=== PATIENT | male | born 1935 | race Caucasian/White ===

== ENCOUNTER 2016-05-19 21:54 | Observation (INO) | payer MEDICARE, OTHER ==
[~2016-05-19] VITALS: Ht 175.3 cm; Wt 69.5 kg
[~2016-05-19 21:54] MED LIST: ASPI81TA82 PO; ATOR10 PO; CHLO10CA17 PO; CIAL20TA PO; COMBAER INH; DEXI30CA2 PO; DUONSOL2 NEB; SPIRCAP INH; SYMB160A INH
[2016-05-19 22:12] VITALS: BP 114/73; PULSE 89; RESP 20; TEMP 99; O2SAT 92
[2016-05-20] VITALS (11 sets, daily range): BP systolic 90–116; BP diastolic 46–68; PULSE 84–94; RESP 18–20; TEMP 98.1–98.3; O2SAT 94–97
[2016-05-20] MEDS ORDERED: VENTAER INH
[2016-05-20] MEDS ORDERED: SYMB80AE INH
[2016-05-20] MEDS ORDERED: ALEN1TAB48 PO
[2016-05-20] MEDS ORDERED: IPRASOL INH
[2016-05-20] MEDS ORDERED: ASPI81TA81
[2016-05-20] MEDS ORDERED: SODIUM CHLORIDE 0.9% FLUSH 10 ML FLUSH IVF PRN (00:15)
[2016-05-20] MEDS ORDERED: methylPREDNISolone SOD SUCC 125 MG/2 ML VIAL IVP ONE (00:15)
[2016-05-20] MEDS: RESP: ALBUTEROL 2.5 MG/IPRATROPIUM 0.5 MG NEB (SCH) INH (00:23)
[2016-05-20 00:27] LABS: AUTOMATED NEUTROPHIL # 12.3 TH/MM3 (1.8-7.7); BASOPHIL # 0.6 TH/MM3 (0-0.2); BASOPHIL % 4.1 % (0.0-2.0); EOSINOPHIL # 0.1 TH/MM3 (0-0.4); EOSINOPHIL % 0.4 % (0.0-4.0); HEMATOCRIT 48.3 % (39.0-51.0); LYMPH % 5.5 % (9.0-44.0); LYMPHOCYTE # 0.8 TH/MM3 (1.0-4.8); MEAN CORPUSCULAR HEMOGLOBIN 29.2 PG (27.0-34.0); MEAN CORPUSCULAR HGB CONC 32.1 % (32.0-36.0); MONO % 6.5 % (0.0-8.0); NEUT % 83.5 % (16.0-70.0); PLATELET COUNT 232 TH/MM3 (150-450); RED CELL DISTRIBUTION WIDTH 13.6 % (11.6-17.2); WHITE BLOOD COUNT 14.8 TH/MM3 (4.0-11.0)
[2016-05-20 00:37] LABS: HEMO FLAGS DIFF FINAL
[2016-05-20 00:39] LABS: CHLORIDE 107 MEQ/L (98-107); POTASSIUM 4.1 MEQ/L (3.5-5.1); SODIUM (NA) 141 MEQ/L (136-145)
[2016-05-20 00:43] LABS: ANION GAP 10 MEQ/L (5-15); BICARBONATE 24.3 MEQ/L (21.0-32.0); BLOOD UREA NITROGEN 21 MG/DL (7-18)
[2016-05-20 00:46] LABS: ALT (GPT) 13 U/L (12-78); AST (GOT) 7 U/L (15-37); GLOMERULAR FILTRATION RATE 93 ML/MIN (>89)
[2016-05-20 00:48] LABS: TOTAL BILIRUBIN ADULT 0.6 MG/DL (0.2-1.0)
[2016-05-20 00:49] LABS: ALKALINE PHOSPHATASE 59 U/L (45-117)
--- NOTE | 2016-05-20 00:55 | RADHPO ---
EXAM DATE/TIME: 05/20/2016 00:42 [facility] COMPARISON: CHEST SINGLE AP, January 24, 2014, 17:39. INDICATIONS : Short of breath. MEDICAL HISTORY : None. SURGICAL HISTORY : None. ENCOUNTER: Initial ACUITY: 1 day PAIN SCORE: 7/10 LOCATION: Bilateral chest FINDINGS: A single portable frontal view the chest shows a parenchymal opacity within the right lung base. Line ar atelectasis within the left lung base. No effusions. Heart is normal in size. Bony structures are unremarkable. Anchoring devices overlie the humeral head on the right. CONCLUSION: Right lower lobe infiltrate. Left basilar atelectasis. Gil Schulte Jr., MD on May 20, 2016 at 0:53 Board Certified Radiologist. This report was verified electronically.
[2016-05-20 01:15] LABS: APTT (PATIENT) 30.4 SEC (24.3-30.1); PROTHROMBIN TIME - PATIENT 11.4 SEC (9.8-11.6)
[2016-05-20] MEDS ORDERED: AZITHROMYCIN INJ 500 MG in SODIUM CHLOR 0.9% 250 ML INJ 250 ML IV ONE (01:15)
[2016-05-20] MEDS ORDERED: cefTRIAXone INJ 1,000 MG in SODIUM CHLORIDE 0.9% INJ 100 ML IV ONE (01:15)
[2016-05-20] MEDS ORDERED: NALOXONE HCL 0.4 MG/ML AMP IV PRN (01:30)
[2016-05-20] MEDS ORDERED: RESP: ALBUTEROL 2.5 MG/IPRATROPIUM 0.5 MG NEB (PRN) NEB (01:30)
[2016-05-20] MEDS ORDERED: SODIUM CHLORIDE 0.9% FLUSH 10 ML FLUSH IV FLUSH PRN (01:30)
--- NOTE | 2016-05-20 02:36 | PD ---
HPI Chief Complaint: Respiratory Distress Time Seen by Provider: 00:08 Travel History International Travel<30 days: No Contact w/Intl Traveler<30days: No Traveled to known affect area: No History of Present Illness HPI Patient is an 80-year-old male with history of COPD who wears oxygen at night, who comes in complaining of shortness of breath for the past 3 days. He says he has had a productive cough, and got worse today. He denies fever or chills. He does say he feels some chest pressure. He has had some swelling in his legs, but says this is improving. He has no heart problems that he knows of. He says he feels like he needs a breathing treatment, but was unable to use his nebulizer at home because he felt like he couldn't take a deep breath. PFSH Past Medical History Autoimmune Disease: No Cancer: Yes (skin cancer ) Cardiovascular Problems: No COPD: Yes Endocrine: No GERD: No Genitourinary: No Hiatal Hernia: No Immune Disorder: No Medical other: Yes (2lts O2 at hs, ) Musculoskeletal: Yes (ostheoporosis) Neurologic: No Psychiatric: No Reproductive: No Respiratory: Yes (COPD) Sleep Apnea: No Ulcer: No Past Surgical History Abdominal Surgery: Yes (APPENDECTOMY) Cardiac Surgery: No Ear Surgery: No Endocrine Surgery: No Eye Surgery: No Genitourinary Surgery: No Gynecologic Surgery: No Thoracic Surgery: Yes (RL LOBE REMOVED) Other Surgery: Yes (hip replacement july 2015) Social History Alcohol Use: Yes (socially) Tobacco Use: Yes (1 ppd) Substance Use: No Allergies-Medications (Allergen,Severity, Reaction): Coded Allergies: No Known Allergies (Verified , 05/17/12) Uncoded Allergies: MYCOLOG CREME (Allergy, Mild, 01/20/03) Reported Meds & Prescriptions Reported Meds & Active Scripts Active Reported Alendronate (Alendronate Sodium) 70 Mg Tab 70 Mg PO Q7D Ventolin Hfa 18 GM Inh (Albuterol Sulfate) 90 Mcg/Act Aer 1 Puff INH Q4H PRN Aspir-81 (Aspirin) 81 Mg Tabdr Symbicort Inh (Budesonide/Formoterol Fumarate) 80-4.5 Mcg/Act Aero 2 Puff INH Q12HR Duoneb (Ipratropium-Albuterol Neb) 0.5-2.5 Mg/3 Ml Neb 1 Nebule INH DAILY Review of Systems Except as stated in HPI: all other systems reviewed are Neg General / Constitutional: No: Fever, Chills HENT: No: Headaches Cardiovascular: Positive: Chest Pain or Discomfort Respiratory: Positive: Cough, Shortness of Breath Gastrointestinal: No: Nausea, Vomiting Musculoskeletal: Positive: Edema, No: Pain Skin: No Rash, No Change in Pigmentation Neurologic: No: Weakness, Dizziness Physical Exam Narrative GENERAL: Awake and alert, in no acute distress. SKIN: Focused skin assessment warm/dry. HEAD: Atraumatic. Normocephalic. EYES: Pupils equal and round. No scleral icterus. ENT: Mucous membranes pink and moist. NECK: Trachea midline. No JVD. CARDIOVASCULAR: Regular rate and rhythm. No murmur appreciated. RESPIRATORY: No accessory muscle use. Breath sounds equal bilaterally. Wheezing throughout the lungs, worse on the left. GASTROINTESTINAL: Abdomen soft, non-tender, nondistended. MUSCULOSKELETAL: No obvious deformities. No clubbing. No cyanosis. 1+ pitting edema of bilateral lower extremities. No calf tenderness. NEUROLOGICAL: Awake and alert. No obvious cranial nerve deficits. Motor grossly within normal limits. Normal speech. PSYCHIATRIC: Appropriate mood and affect; insight and judgment normal. Data Data Last Documented VS Vital Signs Date Time Temp Pulse Resp B/P Pulse Ox O2 Delivery O2 Flow Rate FiO2 05/20/16 01:14 95 Nasal Cannula 2 05/20/16 01:06 94 96/63 05/19/16 22:12 99.0 20 Orders Complete Blood Count With Diff (05/20/16 00:14) Comprehensive Metabolic Panel (05/20/16 00:14) B-Type Natriuretic Peptide (05/20/16 00:14) Act Partial Throm Time (Ptt) (05/20/16 00:14) Prothrombin Time / Inr (Pt) (05/20/16 00:14) Troponin I (05/20/16 00:14) Iv Access Insert/Monitor (05/20/16 00:14) Ecg Monitoring (05/20/16 00:14) Oximetry (05/20/16 00:14) Oxygen Administration (05/20/16 00:14) Chest, Single Ap (05/20/16 00:14) Sodium Chloride 0.9% Flush (Ns Flush) (05/20/16 00:15) Methylprednisolone So Succ Inj (Solumedr (05/20/16 00:15) Albuterol-Ipratropium Neb (Duoneb Neb) (05/20/16 00:15) Ceftriaxone Inj (Rocephin Inj) (05/20/16 01:15) Azithromycin Inj (Zithromax Inj) (05/20/16 01:15) Admit Order (Ed Use Only) (05/20/16 ) Labs Laboratory Tests Test 05/20/16 00:19 White Blood Count 14.8 TH/MM3 Red Blood Count 5.30 MIL/MM3 Hemoglobin 15.5 GM/DL Hematocrit 48.3 % Mean Corpuscular Volume 91.0 FL Mean Corpuscular Hemoglobin 29.2 PG Mean Corpuscular Hemoglobin 32.1 % Concent Red Cell Distribution Width 13.6 % Platelet Count 232 TH/MM3 Mean Platelet Volume 7.2 FL Neutrophils (%) (Auto) 83.5 % Lymphocytes (%) (Auto) 5.5 % Monocytes (%) (Auto) 6.5 % Eosinophils (%) (Auto) 0.4 % Basophils (%) (Auto) 4.1 % Neutrophils # (Auto) 12.3 TH/MM3 Lymphocytes # (Auto) 0.8 TH/MM3 Monocytes # (Auto) 1.0 TH/MM3 Eosinophils # (Auto) 0.1 TH/MM3 Basophils # (Auto) 0.6 TH/MM3 CBC Comment DIFF FINAL Differential Comment Prothrombin Time 11.4 SEC Prothromb Time International 1.0 RATIO Ratio Activated Partial 30.4 SEC Thromboplast Time Sodium Level 141 MEQ/L Potassium Level 4.1 MEQ/L Chloride Level 107 MEQ/L Carbon Dioxide Level 24.3 MEQ/L Anion Gap 10 MEQ/L Blood Urea Nitrogen 21 MG/DL Creatinine 0.80 MG/DL Estimat Glomerular Filtration 93 ML/MIN Rate Random Glucose 108 MG/DL Calcium Level 9.0 MG/DL Total Bilirubin 0.6 MG/DL Aspartate Amino Transf 7 U/L (AST/SGOT) Alanine Aminotransferase 13 U/L (ALT/SGPT) Alkaline Phosphatase 59 U/L Troponin I LESS THAN 0.02 NG/ML B-Type Natriuretic Peptide 79 PG/ML Total Protein 6.9 GM/DL Albumin 3.3 GM/DL MDM Medical Decision Making Medical Screen Exam Complete: Yes Emergency Medical Condition: Yes Medical Record Reviewed: Yes Interpretation(s) ECG shows normal sinus rhythm at 88, no ST elevation or depression, normal intervals. Differential Diagnosis COPD exacerbation versus pneumonia versus ACS Narrative Course Patient is an 80-year-old male who comes in complaining of shortness of breath. Exam shows wheezing in the lungs, worse on the left. IV established, labs sent. Patient connected to the hospital monitor. Given 3 duo nebs as well as a dose of Solu-Medrol. Labs show an elevated white blood cell count to 14.8. Chest x-ray shows a right -sided infiltrate. Patient given Rocephin and azithromycin. Will be admitted for further management. Diagnosis Primary Impression: Pneumonia Qualified Code: J18.1 - Pneumonia of right lower lobe due to infectious organism Additional Impression: Chronic obstructive pulmonary disease Qualified Code: J44.1 - Chronic obstructive pulmonary disease with acute exacerbation Admitting Information Admitting Physician Requests: Admit Inez Gaxiola MD May 20, 2016 02:36
[2016-05-20] MEDS: RESP: ALBUTEROL 2.5 MG/IPRATROPIUM 0.5 MG NEB (SCH) NEB ×3 (04:07→15:23)
[2016-05-20] MEDS: methylPREDNISolone SOD SUCC 40 MG/1 ML VIAL IV PUSH SCH ×2 (05:44→12:07)
[2016-05-20] MEDS ORDERED: LEVOFLOXACIN 750 MG PREMIX INJ 150 ML IV SCH (09:00)
[2016-05-20] MEDS ORDERED: ASPIRIN EC 81 MG TABEC PO SCH (09:00)
[2016-05-20] MEDS ORDERED: SODIUM CHLORIDE 0.9% FLUSH 10 ML FLUSH IV FLUSH SCH (09:00)
[2016-05-20] MEDS ORDERED: BUDESONIDE-FORMOTEROL 80/4.5 MCG INHALER INH SCH (09:00)
[2016-05-20] MEDS ORDERED: PANTOPRAZOLE SOD 40 MG DELAYED RELEASE TAB PO SCH (09:00)
[2016-05-20] MEDS ORDERED: ENOXAPARIN SODIUM 40 MG/0.4 ML SYRINGE SQ SCH (09:00)
--- NOTE | 2016-05-20 10:40 | EKG ---
Date Performed: 05/20/2016 Time Performed: 00:04:40 PTAGE: 80 years EKG: Sinus rhythm . Normal ECG Compared to prior tracing no significant change PREVIOUS TRACING : 01/24/2014 23.37 DOCTOR: Sofia Armando Interpretating Date/Time 05/20/2016 10:34:24
--- NOTE | 2016-05-20 13:51 | HHI.HP ---
[facility] Service [facility] Primary Care Physician Ty Weeks MD Admission Diagnosis Pneumonia, COPD Diagnoses: Travel History International Travel<30 Days: No Contact w/Intl Traveler <30 Da: No Traveled to Known Affected Are: No History of Present Illness This is a pleasant 80 year-old female with past medical history of COPD on oxygen 2 L at night who continues to smoke about a pack a day who presents to the ER last night with a three-day history of cough which progressed to dyspnea and wheezing. He denied fevers or chills. Denied confusion. He made an appointment to be seen by his infectious disease physician Dr. Valle this morning. Yesterday evening he felt so short of breath that it was difficult to use his inhaler and so he presented to the ER. He was given Rocephin Zithromax Solu-Medrol and DuoNeb's. Today he states he feels 80% better. In the emergency department chest x-ray showed a right lower lobe infiltrate. The patient also has history of partial lobe resection of the right lung following some type of infection. Review of Systems Constitutional: DENIES: Fever, Chills Ears, nose, mouth, throat: DENIES: Throat pain, Running Nose Respiratory: COMPLAINS OF: Cough, Shortness of breath, DENIES: Sputum production Cardiovascular: DENIES: Chest pain, Palpitations Gastrointestinal: DENIES: Abdominal pain, Vomiting Genitourinary: DENIES: Hematuria, Dysuria Musculoskeletal: DENIES: Back pain, Neck pain Integumentary: DENIES: Rash Hematologic/lymphatic: DENIES: Lymphadenopathy Neurologic: DENIES: Abnormal gait, Headache Psychiatric: DENIES: Anxiety, Confusion Past Family Social History Past Medical History COPD on 2 L nasal cannula at night History of partial right lobectomy following infection Reported Medications Last Impressions Chest X-Ray 05/20/16 0014 Signed Impressions: Service Date/Time: Friday, May 20, 2016 00:42 - CONCLUSION: Right lower lobe infiltrate. Left basilar atelectasis. Gil Schulte Jr., MD Allergies: Coded Allergies: No Known Allergies (Verified , 05/17/12) Uncoded Allergies: MYCOLOG CREME (Allergy, Mild, 01/20/03) Family History Reviewed and noncontributory Social History No alcohol use Physical Exam Vital Signs Vital Signs Date Time Temp Pulse Resp B/P Pulse Ox O2 Delivery O2 Flow Rate FiO2 05/20/16 11:47 90 20 116/65 96 Room Air 05/20/16 10:24 94 21 05/20/16 10:01 89 18 103/56 97 Room Air 05/20/16 08:30 90 18 90/46 97 Room Air 05/20/16 07:16 98.3 88 18 114/60 97 Nasal Cannula 2 05/20/16 07:12 96 Nasal Cannula 2 05/20/16 05:10 90 103/60 94 Nasal Cannula 2 05/20/16 04:58 Nasal Cannula 2 05/20/16 01:14 95 Nasal Cannula 2 05/20/16 01:06 94 96/63 95 Nasal Cannula 2 05/20/16 00:48 97 Nasal Cannula 2.00 05/20/16 00:45 96 Nasal Cannula 2 05/20/16 00:13 96 Nasal Cannula 2 05/19/16 22:12 99.0 89 20 114/73 92 Physical Exam GENERAL: Well-nourished, well-developed patient. SKIN: Warm and dry. HEAD: Normocephalic. EYES: No scleral icterus. No injection or drainage. NECK: Supple, trachea midline. No JVD or lymphadenopathy. CARDIOVASCULAR: Regular rate and rhythm without murmurs, gallops, or rubs. RESPIRATORY: Breath sounds equal bilaterally. No accessory muscle use. GASTROINTESTINAL: Abdomen soft, non-tender, nondistended. EXTREMITIES: No cyanosis, or edema. NEUROLOGICAL: Awake, alert, and oriented x 3. Non-focal. Laboratory Laboratory Tests Test 05/20/16 05/20/16 00:19 09:48 White Blood Count 14.8 Red Blood Count 5.30 Hemoglobin 15.5 Hematocrit 48.3 Mean Corpuscular Volume 91.0 Mean Corpuscular Hemoglobin 29.2 Mean Corpuscular Hemoglobin 32.1 Concent Red Cell Distribution Width 13.6 Platelet Count 232 Mean Platelet Volume 7.2 Neutrophils (%) (Auto) 83.5 Lymphocytes (%) (Auto) 5.5 Monocytes (%) (Auto) 6.5 Eosinophils (%) (Auto) 0.4 Basophils (%) (Auto) 4.1 Neutrophils # (Auto) 12.3 Lymphocytes # (Auto) 0.8 Monocytes # (Auto) 1.0 Eosinophils # (Auto) 0.1 Basophils # (Auto) 0.6 CBC Comment DIFF FINAL Differential Comment Prothrombin Time 11.4 Prothromb Time International 1.0 Ratio Activated Partial 30.4 Thromboplast Time Sodium Level 141 Potassium Level 4.1 Chloride Level 107 Carbon Dioxide Level 24.3 Anion Gap 10 Blood Urea Nitrogen 21 Creatinine 0.80 Estimat Glomerular Filtration 93 Rate Random Glucose 108 Calcium Level 9.0 Total Bilirubin 0.6 Aspartate Amino Transf 7 (AST/SGOT) Alanine Aminotransferase 13 (ALT/SGPT) Alkaline Phosphatase 59 Troponin I LESS THAN 0.02 B-Type Natriuretic Peptide 79 Total Protein 6.9 Albumin 3.3 Lactic Acid Level 1.6 Result Diagram: 05/20/16 0019 05/20/16 0019 Assessment and Plan Assessment and Plan -Right lower lobe pneumonia, mild COPD exacerbation. No wheezing on exam today. The patient's feels 80% better. He ambulated well and independently on physical therapy evaluation and did not require oxygen while walking. I believe he will do fine on a short course of steroids and Levaquin prescription. The patient was given the option of staying another night in the hospital however he strongly wants to go home. He agrees to return to the hospital. Should start to feel more short of breath. He agrees to follow-up with his infectious disease physician Dr. Valle in 2-3 days. He was encouraged to quit smoking. Diane Kuo MD May 20, 2016 13:51
[2016-05-20] MEDS ORDERED: LEVA750T PO (13:55)
[2016-05-20] MEDS ORDERED: MEDR4PAK PO (13:55)
== END 2016-05-20 15:48 | disposition home or self-care (01) ==
LOC: PHED 21:54 → PHEDA 05-20 01:32 → INTOOBSV 05-20 01:32 → PHEDH 05-20 05:32 → PH3B 05-20 13:12
PROVIDERS: ADMIT Family Medicine; ATTEND Family Medicine
DX: J44.0 Chronic obstructive pulmonary disease with (acute) lower respiratory infection (principal); J18.9 Pneumonia, unspecified organism; J44.1 Chronic obstructive pulmonary disease with (acute) exacerbation; F17.200 Nicotine dependence, unspecified, uncomplicated; Z85.828 Personal history of other malignant neoplasm of skin; Z88.8 Allergy status to other drugs, medicaments and biological substances; Z79.82 Long term (current) use of aspirin
CPT/HCPCS: 71010; 80053; 83605; 83880; 84484; 85025; 85610; 85730; 93005; 94640; 94664; 96374; 96375; 97162; 99285; G0378; G8987; G8988; J0456; J0696; J1650; J1956; J2920; J2930; J7050

== ENCOUNTER 2016-12-11 21:01 | Emergency (ER) | payer MEDICARE, OTHER ==
[~2016-12-11] VITALS: Ht 182.9 cm; Wt 75.1 kg
[~2016-12-11 21:01] MED LIST changes: +ALEN1TAB48 PO; +ASPI81TA81; -ASPI81TA82 PO; -ATOR10 PO; -CHLO10CA17 PO; -CIAL20TA PO; -COMBAER INH; -DEXI30CA2 PO; -DUONSOL2 NEB; +IPRASOL INH; +LEVA750T PO; +MEDR4PAK PO; -SPIRCAP INH; -SYMB160A INH; +SYMB80AE INH; +VENTAER INH
[2016-12-11 21:10] VITALS: BP 115/73; PULSE 88; RESP 22; TEMP 98.2; O2SAT 96
[2016-12-11] MEDS ORDERED: LIBRAX PO (21:22)
[2016-12-11] MEDS ORDERED: CIAL2.5T PO (21:22)
--- NOTE | 2016-12-11 21:44 | PD ---
HPI Chief Complaint: Respiratory Symptoms Time Seen by Provider: 21:36 Travel History International Travel<30 days: No Contact w/Intl Traveler<30days: No Traveled to known affect area: No History of Present Illness HPI 81-year-old male presents to the emergency department for complaint of cough congestion and clear to yellow sputum production. Patient has history of COPD. Patient states that he recently traveled here for the winter months and has not yet had his flu shot. Patient states he contacted his local primary care provider but because he had a cold was told that he could not get the flu vaccine. Patient has had no fever but reports he has complained of chills over the past week. Patient's had no orthopnea or PND. Patient states that he has noted however these had some increased cough production and shortness of breath and has been using his nebulizer for bronchodilator therapy. Patient is currently not on a steroid. Patient denies being on a recent antibiotic and is currently not on antibiotic. Patient denies any chest pain. Patient rates discomfort 0/10 in intensity. Patient states he typically uses supplemental oxygen anywhere from 2-1/2 to 3 L/m nasal cannula at nighttime but has not had to increase this quantity of supplemental oxygen. Patient continues to smoke cigarettes. PFSH Past Medical History Narrative Medical COPD; appendectomy, right lower lobectomy; tobacco use occasional alcohol use; nursing notes reviewed Autoimmune Disease: No Cancer: Yes (skin cancer ) Cardiovascular Problems: No COPD: Yes Endocrine: No Gastrointestinal Disorders: No GERD: No Genitourinary: No Hiatal Hernia: No Immune Disorder: No Implanted Vascular Access Dvce: No Musculoskeletal: Yes (ostheoporosis) Neurologic: No Psychiatric: No Reproductive: No Respiratory: Yes (COPD) Sleep Apnea: No Ulcer: No ?: Not Past Surgical History Abdominal Surgery: Yes (APPENDECTOMY) Cardiac Surgery: No Ear Surgery: No Endocrine Surgery: No Eye Surgery: No Genitourinary Surgery: No Gynecologic Surgery: No Neurologic Surgery: No Thoracic Surgery: Yes (RL LOBE REMOVED) Other Surgery: Yes (hip replacement july 2015) Social History Alcohol Use: Yes (socially) Tobacco Use: Yes (1 ppd) Substance Use: No Allergies-Medications (Allergen,Severity, Reaction): Coded Allergies: No Known Allergies (Verified , 12/11/16) Uncoded Allergies: MYCOLOG CREME (Allergy, Mild, 01/20/03) Reported Meds & Prescriptions Reported Meds & Active Scripts Active Cefdinir 300 Mg Cap 300 Mg PO BID 10 Days Reported Cialis (Tadalafil) 2.5 Mg Tab 2.5 Mg PO DAILY Do not exceed 1 dose/day. Librax (Chlordiazepoxide/Clidinium) 5-2.5 Mg Cap 2 Cap PO QID Alendronate (Alendronate Sodium) 70 Mg Tab 70 Mg PO Q7D Ventolin Hfa 18 GM Inh (Albuterol Sulfate) 90 Mcg/Act Aer 1 Puff INH Q4H PRN Aspir-81 (Aspirin) 81 Mg Tabdr Symbicort Inh (Budesonide/Formoterol Fumarate) 80-4.5 Mcg/Act Aero 2 Puff INH Q12HR Duoneb (Ipratropium-Albuterol Neb) 0.5-2.5 Mg/3 Ml Neb 1 Nebule INH DAILY Review of Systems Except as stated in HPI: all other systems reviewed are Neg General / Constitutional: Positive: Chills, No: Fever HENT: No: Congestion Cardiovascular: No: Chest Pain or Discomfort Respiratory: Positive: Cough, Shortness of Breath, Wheezing Gastrointestinal: No: Abdominal Pain Genitourinary: No: Flank Pain Musculoskeletal: No: Myalgias, Arthralgias, Edema, Pain Skin: No Rash Neurologic: No: Weakness, Dizziness Psychiatric: No: Anxiety Endocrine: No: Heat Intolerance Hematologic/Lymphatic: No: Easy Bruising Physical Exam Narrative GENERAL: Well-developed well-nourished male in no acute distress no respiratory distress SKIN: Warm and dry. HEAD: Normocephalic. EYES: No scleral icterus. No injection or drainage. NECK: Supple, trachea midline. No JVD or lymphadenopathy. CARDIOVASCULAR: Regular rate and rhythm without murmurs, gallops, or rubs. RESPIRATORY: Breath sounds equal bilaterally. Few bilateral expiratory wheezes. No accessory muscle use. GASTROINTESTINAL: Abdomen soft, non-tender, nondistended. MUSCULOSKELETAL: No cyanosis, or edema. BACK: Nontender without obvious deformity. No CVA tenderness. Data Data Last Documented VS Vital Signs Date Time Temp Pulse Resp B/P (MAP) Pulse Ox O2 Delivery O2 Flow Rate FiO2 12/11/16 22:10 96 Nasal Cannula 2.00 12/11/16 21:10 98.2 88 22 115/73 (87) Orders Orders Complete Blood Count With Diff (12/11/16 21:36) Comprehensive Metabolic Panel (12/11/16 21:36) B-Type Natriuretic Peptide (12/11/16 21:36) Magnesium (Mg) (12/11/16 21:36) Ckmb (Isoenzyme) Profile (12/11/16 21:36) Troponin I (12/11/16 21:36) Iv Access Insert/Monitor (12/11/16 21:36) Electrocardiogram (12/11/16 21:36) Ecg Monitoring (12/11/16 21:36) Oximetry (12/11/16 21:36) Oxygen Administration (12/11/16 21:36) Chest, Single Ap (12/11/16 21:36) Sodium Chloride 0.9% Flush (Ns Flush) (12/11/16 21:45) Methylprednisolone So Succ Inj (Solumedr (12/11/16 21:45) Albuterol-Ipratropium Neb (Duoneb Neb) (12/11/16 21:45) Influenzae A/B Antigen (12/11/16 21:36) Albuterol-Ipratropium Neb (Duoneb Neb) (12/11/16 22:45) Ceftriaxone Inj (Rocephin Inj) (12/11/16 22:45) Labs Laboratory Tests Test 12/11/16 22:00 12/11/16 22:40 White Blood Count 5.2 TH/MM3 Red Blood Count 5.42 MIL/MM3 Hemoglobin 16.5 GM/DL Hematocrit 50.0 % Mean Corpuscular Volume 92.3 FL Mean Corpuscular Hemoglobin 30.4 PG Mean Corpuscular Hemoglobin Concent 32.9 % Red Cell Distribution Width 14.1 % Platelet Count 169 TH/MM3 Mean Platelet Volume 8.0 FL Neutrophils (%) (Auto) 67.0 % Lymphocytes (%) (Auto) 12.1 % Monocytes (%) (Auto) 15.9 % Eosinophils (%) (Auto) 1.2 % Basophils (%) (Auto) 3.8 % Neutrophils # (Auto) 3.5 TH/MM3 Lymphocytes # (Auto) 0.6 TH/MM3 Monocytes # (Auto) 0.8 TH/MM3 Eosinophils # (Auto) 0.1 TH/MM3 Basophils # (Auto) 0.2 TH/MM3 CBC Comment DIFF FINAL Differential Comment B-Type Natriuretic Peptide 29 PG/ML Blood Urea Nitrogen 15 MG/DL Creatinine 0.87 MG/DL Random Glucose 120 MG/DL Total Protein 6.7 GM/DL Albumin 3.3 GM/DL Calcium Level 8.6 MG/DL Magnesium Level 2.3 MG/DL Alkaline Phosphatase 64 U/L Aspartate Amino Transf (AST/SGOT) 11 U/L Alanine Aminotransferase (ALT/SGPT) 17 U/L Total Bilirubin 0.4 MG/DL Sodium Level 139 MEQ/L Potassium Level 4.3 MEQ/L Chloride Level 105 MEQ/L Carbon Dioxide Level 29.6 MEQ/L Anion Gap 4 MEQ/L Estimat Glomerular Filtration Rate 84 ML/MIN Total Creatine Kinase 42 U/L Troponin I LESS THAN 0.02 NG/ML MDM Medical Decision Making Medical Screen Exam Complete: Yes Emergency Medical Condition: Yes Medical Record Reviewed: Yes Interpretation(s) EKG sinus rhythm no acute ST elevation or injury pattern or ectopy noted Chest x-ray no lobar infiltrate no vascular congestion BNP: 29, not elevated Influenza A/B antigen: Negative Troponin I: Less than 0.02, not elevated; CK total: 49, not elevated Differential Diagnosis Cough, pneumonia, bronchitis, exacerbation COPD, CHF, ACS, PE Narrative Course IV access obtained specimen collected and sent for resulting patient placed on administrative staff supervisor pulse oximetry and supplemental oxygen 2 L/m nasal cannula administered patient ordered DuoNeb updrafts as well as Solu-Medrol 105 mg IV After times one DuoNeb updraft patient is clinically improved however is complaining of some shortness of breath continues to produce clear yellow sputum ; patient without evidence of white count elevation or pneumonia by chest x-ray afebrile here without tachycardia symptoms improved after DuoNeb updraft; will administer a one-time dose of IV Rocephin for infectious bronchitis and will administer 2 additional DuoNeb updrafts. Anticipate patient will be stable for outpatient management with close follow-up with his primary care provider . At 11:20 PM patient is clinically improved and stable for outpatient management as previously identified. Diagnosis Primary Impression: Chronic obstructive pulmonary disease Additional Impression: Acute bronchitis with COPD Referrals: Primary Care Physician call for appointment Patient Instructions: General Instructions Additional Instructions: Increase fluid hydration Complete course of antibiotic as prescribed Follow-up with primary care provider call office in a.m. to schedule follow-up appointment Take acetaminophen/Tylenol every 4 hours as needed for fever 100.4F or greater Continue chronic medications as currently prescribed Med/Other Pt SpecificInfo: Prescription(s) given Scripts Cefdinir (Cefdinir) 300 Mg Cap 300 MG PO BID for Infection for 10 Days, #20 CAP 0 Refills Prov: Ni Dickerson MD 12/11/16 Disposition: 01 DISCHARGE HOME Condition: Stable Ni Dickerson MD Dec 11, 2016 21:44
[2016-12-11] MEDS ORDERED: SODIUM CHLORIDE 0.9% FLUSH 10 ML FLUSH IVF PRN (21:45)
[2016-12-11] MEDS ORDERED: methylPREDNISolone SOD SUCC 125 MG/2 ML VIAL IV PUSH ONE (21:45)
[2016-12-11] MEDS ORDERED: RESP: ALBUTEROL 2.5 MG/IPRATROPIUM 0.5 MG NEB (SCH) INH ONE (21:45)
[2016-12-11 22:03] LABS: AUTOMATED NEUTROPHIL # 3.5 TH/MM3 (1.8-7.7); BASOPHIL # 0.2 TH/MM3 (0-0.2); BASOPHIL % 3.8 % (0.0-2.0); EOSINOPHIL # 0.1 TH/MM3 (0-0.4); EOSINOPHIL % 1.2 % (0.0-4.0); HEMOGLOBIN 16.5 GM/DL (13.0-17.0); LYMPH % 12.1 % (9.0-44.0); LYMPHOCYTE # 0.6 TH/MM3 (1.0-4.8); MEAN CELL VOLUME 92.3 FL (80.0-100.0); MEAN CORPUSCULAR HEMOGLOBIN 30.4 PG (27.0-34.0); MEAN CORPUSCULAR HGB CONC 32.9 % (32.0-36.0); MONO % 15.9 % (0.0-8.0); MONOCYTE # 0.8 TH/MM3 (0-0.9); PLATELET COUNT 169 TH/MM3 (150-450); RED BLOOD COUNT 5.42 MIL/MM3 (4.50-5.90); RED CELL DISTRIBUTION WIDTH 14.1 % (11.6-17.2); WHITE BLOOD COUNT 5.2 TH/MM3 (4.0-11.0)
[2016-12-11 22:10] VITALS: O2SAT 96
--- NOTE | 2016-12-11 22:20 | RADRPT ---
EXAM DATE/TIME: 12/11/2016 21:51 [facility] COMPARISON: CHEST SINGLE AP, May 20, 2016, 0:42. INDICATIONS : Short of breath since today. MEDICAL HISTORY : Chronic obstructive pulmonary disease. SURGICAL HISTORY : None. ENCOUNTER: Initial ACUITY: 1 day PAIN SCORE: 0/10 LOCATION: Bilateral chest FINDINGS: Emphysema and patchy interstitial prominence and poor scarring similar to prior. No definite consolidative infiltrate or effusion. Cardiac contours are unchanged. CONCLUSION: Stable chest appearance with emphysema and chronic interstitial changes. Arie Roe MD on December 11, 2016 at 22:17 Board Certified Radiologist. This report was verified electronically.
[2016-12-11 22:40] VITALS: BP 110/68; PULSE 89; RESP 18; O2SAT 96
[2016-12-11] MEDS ORDERED: cefTRIAXone INJ 1,000 MG in SODIUM CHLORIDE 0.9% INJ 100 ML IV ONE (22:45)
--- NOTE | 2016-12-11 22:54 | EKG ---
Date Performed: 12/11/2016 Time Performed: 21:45:09 PTAGE: 81 years EKG: Sinus rhythm NORMAL ECG PREVIOUS TRACING : 05/20/2016 00.04 Compared to prior tracing no significant change DOCTOR: Adilson Wilkes Interpretating Date/Time 12/11/2016 22:53:16
[2016-12-11 23:00] LABS: CHLORIDE 105 MEQ/L (98-107); SODIUM (NA) 139 MEQ/L (136-145)
[2016-12-11 23:04] LABS: ALBUMIN 3.3 GM/DL (3.4-5.0); BICARBONATE 29.6 MEQ/L (21.0-32.0); BLOOD UREA NITROGEN 15 MG/DL (7-18); CALCIUM 8.6 MG/DL (8.5-10.1); GLUCOSE,RANDOM 120 MG/DL (74-106); MAGNESIUM 2.3 MG/DL (1.5-2.5)
[2016-12-11] MEDS: RESP: ALBUTEROL 2.5 MG/IPRATROPIUM 0.5 MG NEB (SCH) INH (23:06)
[2016-12-11] MEDS ORDERED: CEFD300C PO (23:06)
[2016-12-11 23:07] LABS: ALT (GPT) 17 U/L (12-78); AST (GOT) 11 U/L (15-37); CREATININE 0.87 MG/DL (0.60-1.30); GLOMERULAR FILTRATION RATE 84 ML/MIN (>89)
[2016-12-11 23:09] LABS: TOTAL BILIRUBIN ADULT 0.4 MG/DL (0.2-1.0); TOTAL PROTEIN 6.7 GM/DL (6.4-8.2)
[2016-12-11 23:10] LABS: ALKALINE PHOSPHATASE 64 U/L (45-117)
[2016-12-11 23:13] LABS: TROPONIN I LESS THAN 0.02 NG/ML (0.02-0.05)
[2016-12-12 00:53] VITALS: BP 109/57
== END 2016-12-12 01:00 | disposition home or self-care (01) ==
LOC: PHED 21:01
DX: J44.0 Chronic obstructive pulmonary disease with (acute) lower respiratory infection (principal); J20.9 Acute bronchitis, unspecified; F17.210 Nicotine dependence, cigarettes, uncomplicated; Z79.899 Other long term (current) drug therapy
CPT/HCPCS: 71010; 80053; 82550; 83735; 83880; 84484; 85025; 93005; 94640; 94664; 96374; 99285; J0696; J2930

== ENCOUNTER 2017-01-31 16:56 | Emergency (ER) | payer MEDICARE, OTHER ==
[~2017-01-31 16:56] MED LIST changes: +CEFD300C PO; +CIAL2.5T PO; -LEVA750T PO; +LIBRAX PO; -MEDR4PAK PO
[2017-01-31 17:07] VITALS: BP 141/72; PULSE 94; RESP 24; TEMP 98.1; O2SAT 96
[2017-01-31] MEDS ORDERED: PRED10 PO (17:11)
[2017-01-31] MEDS ORDERED: TAMS0.4C4 PO (17:11)
[2017-01-31] MEDS ORDERED: predniSONE 20 MG TAB PO ONE (17:30)
[2017-01-31 17:35] VITALS: BP 95/65; PULSE 92; RESP 20; O2SAT 98
--- NOTE | 2017-01-31 17:43 | PD ---
HPI Chief Complaint: Respiratory Symptoms Time Seen by Provider: 17:09 Travel History International Travel<30 days: No Contact w/Intl Traveler<30days: No Traveled to known affect area: No History of Present Illness HPI patient is an 81-year-old male with a history of COPD on 2-3 L oxygen at home nearly [id number] now. Gradual decrease in lung function over the past few months. He states that his primary care physician Dr. franklin is told him that he is about to be on steroids all the time. Patient states that he's been having shortness of breath for the past 2-3 days, gradually worsening. Denies any cough congestion or fever. States that this happens to him from time to time and thinks that his lungs are starting to get worse. He continues to smoke despite having advanced COPD, he does not smoke while he was using his oxygen. States symptoms are moderate, context as above, gradually worsening, associated signs symptoms as above. PFSH Past Medical History Autoimmune Disease: No Cancer: Yes (skin cancer ) Cardiovascular Problems: No COPD: Yes Endocrine: No Gastrointestinal Disorders: No GERD: No Genitourinary: No Hiatal Hernia: No Immune Disorder: No Implanted Vascular Access Dvce: No Musculoskeletal: Yes (ostheoporosis) Neurologic: No Psychiatric: No Reproductive: No Respiratory: Yes (COPD) Sleep Apnea: No Ulcer: No Past Surgical History Abdominal Surgery: Yes (APPENDECTOMY) Cardiac Surgery: No Ear Surgery: No Endocrine Surgery: No Eye Surgery: No Genitourinary Surgery: No Gynecologic Surgery: No Neurologic Surgery: No Thoracic Surgery: Yes (RL LOBE REMOVED) Other Surgery: Yes (hip replacement july 2015) Social History Alcohol Use: Yes (socially) Tobacco Use: Yes (1/2PPD) Substance Use: No Allergies-Medications (Allergen,Severity, Reaction): Coded Allergies: No Known Allergies (Verified Adverse Reaction, Unknown, 01/31/17) Uncoded Allergies: MYCOLOG CREME (Allergy, Mild, 01/20/03) Reported Meds & Prescriptions Reported Meds & Active Scripts Active Prednisone 20 Mg Tab 60 Mg PO DAILY 5 Days Reported Tamsulosin (Tamsulosin HCl) 0.4 Mg Cap 0.4 Mg PO HS Prednisone 10 Mg Tab 10 Mg PO DAILY Ventolin Hfa 18 GM Inh (Albuterol Sulfate) 90 Mcg/Act Aer 1 Puff INH Q4H PRN Symbicort Inh (Budesonide/Formoterol Fumarate) 80-4.5 Mcg/Act Aero 2 Puff INH Q12HR Duoneb (Ipratropium-Albuterol Neb) 0.5-2.5 Mg/3 Ml Neb 1 Nebule INH DAILY Review of Systems Except as stated in HPI: all other systems reviewed are Neg Physical Exam Narrative GENERAL: Well-developed well-nourished, no obvious distress. SKIN: Focused skin assessment warm/dry. HEAD: Atraumatic. Normocephalic. EYES: Pupils equal and round. No scleral icterus. No injection or drainage. ENT: No nasal bleeding or discharge. Mucous membranes pink and moist. NECK: Trachea midline. No JVD. CARDIOVASCULAR: Regular rate and rhythm. No murmur appreciated. 2+ bilateral equal pulses in all 4 extremity's. RESPIRATORY: No accessory muscle use. Clear to auscultation. Breath sounds equal bilaterally. Speaks in full sentences, no wheezes rales or rhonchi. GASTROINTESTINAL: Abdomen soft, non-tender, nondistended. Hepatic and splenic margins not palpable. MUSCULOSKELETAL: No obvious deformities. No clubbing. No cyanosis. No edema. NEUROLOGICAL: Awake and alert. No obvious cranial nerve deficits. Motor grossly within normal limits. Normal speech. PSYCHIATRIC: Appropriate mood and affect; insight and judgment normal. Data Data Last Documented VS Vital Signs Date Time Temp Pulse Resp B/P (MAP) Pulse Ox O2 Delivery O2 Flow Rate FiO2 01/31/17 18:04 89 20 100/59 (73) 98 Nasal Cannula 2.00 01/31/17 17:07 98.1 Orders Orders Chest, Pa & Lat (01/31/17 ) Prednisone (Deltasone) (01/31/17 17:30) Ed Discharge Order (01/31/17 18:03) MDM Medical Decision Making Medical Screen Exam Complete: Yes Emergency Medical Condition: Yes Differential Diagnosis COPD exacerbation, pneumonia, end-stage COPD. Narrative Course Patient roomed emergency department, appears well, chest x-ray negative. Lab work do not think would benefit him at this time. He is comfortable on his 2 L nasal cannula. He will be discharged with prednisone, follow-up the primary care physician by phone on Thursday, discussed return to ED criteria. Diagnosis Primary Impression: COPD exacerbation Med/Other Pt SpecificInfo: Prescription(s) given Scripts Prednisone (Prednisone) 20 Mg Tab 60 MG PO DAILY for 5 Days, #15 TAB 0 Refills Prov: Alberto Gallegos MD 01/31/17 Disposition: 01 DISCHARGE HOME Condition: Stable Alberto Gallegos MD Jan 31, 2017 17:43
--- NOTE | 2017-01-31 18:01 | RADRPT ---
EXAM DATE/TIME: 01/31/2017 17:50 [facility] COMPARISON: No previous studies available for comparison. INDICATIONS : Shortness of breath for 2 days. MEDICAL HISTORY : Chronic obstructive pulmonary disease. SURGICAL HISTORY : Lung surgery. ENCOUNTER: Initial ACUITY: 2 days PAIN SCORE: 0/10 LOCATION: Bilateral chest FINDINGS: PA and lateral views of the chest demonstrate the lungs to be symmetrically aerated without evidence of mass, infiltrate or effusion. There is underlying emphysema. Basilar lung scarring. No effusion. H eart size normal. CONCLUSION: 1. Emphysema with basilar lung scarring. No effusion or pneumothorax. Aldo Hensley MD on January 31, 2017 at 17:56 Board Certified Radiologist. This report was verified electronically.
[2017-01-31] MEDS ORDERED: PRED20 PO (18:03)
[2017-01-31 18:04] VITALS: BP 100/59
--- NOTE | 2017-01-31 21:15 | EKG ---
Date Performed: 01/31/2017 Time Performed: 17:05:17 PTAGE: 81 years EKG: Sinus rhythm NORMAL ECG NO PREVIOUS TRACING DOCTOR: Andrzej Sr Interpretating Date/Time 01/31/2017 21:14:24
== END 2017-01-31 18:17 | disposition home or self-care (01) ==
LOC: PHED 16:56
DX: J44.1 Chronic obstructive pulmonary disease with (acute) exacerbation (principal); F17.210 Nicotine dependence, cigarettes, uncomplicated
CPT/HCPCS: 71020; 93005; 99283; J7512

== ENCOUNTER 2017-03-09 18:09 | Emergency (ER) | payer MEDICARE, OTHER ==
[2017-03-09] MEDS: RESP: ALBUTEROL 2.5 MG/IPRATROPIUM 0.5 MG NEB (SCH) INH ×3 (19:21→19:40)
[2017-03-09] MEDS: methylPREDNISolone SOD SUCC 125 MG/2 ML VIAL IV PUSH (19:23)
[2017-03-09] MEDS: SODIUM CHLORIDE 0.9% FLUSH 10 ML FLUSH IVF (19:24)
[2017-03-09 19:35] LABS: AUTOMATED NEUTROPHIL # 7.9 TH/MM3 (1.8-7.7); BASOPHIL # 0.1 TH/MM3 (0-0.2); BASOPHIL % 1.1 % (0.0-2.0); EOSINOPHIL % 0.1 % (0.0-4.0); HEMATOCRIT 48.4 % (39.0-51.0); HEMOGLOBIN 15.8 GM/DL (13.0-17.0); LYMPH % 5.1 % (9.0-44.0); LYMPHOCYTE # 0.5 TH/MM3 (1.0-4.8); MEAN CELL VOLUME 92.8 FL (80.0-100.0); MEAN CORPUSCULAR HEMOGLOBIN 30.3 PG (27.0-34.0); MEAN CORPUSCULAR HGB CONC 32.7 % (32.0-36.0); MEAN PLATELET VOLUME 7.9 FL (7.0-11.0); MONO % 4.4 % (0.0-8.0); MONOCYTE # 0.4 TH/MM3 (0-0.9); NEUT % 89.3 % (16.0-70.0); PLATELET COUNT 184 TH/MM3 (150-450); RED BLOOD COUNT 5.22 MIL/MM3 (4.50-5.90); RED CELL DISTRIBUTION WIDTH 13.3 % (11.6-17.2); WHITE BLOOD COUNT 8.9 TH/MM3 (4.0-11.0)
[2017-03-09 19:39] LABS: HEMO FLAGS DIFF FINAL
[2017-03-09 19:44] LABS: CHLORIDE 105 MEQ/L (98-107); POTASSIUM 4.3 MEQ/L (3.5-5.1); SODIUM (NA) 140 MEQ/L (136-145)
[2017-03-09 19:47] LABS: CALCIUM 8.9 MG/DL (8.5-10.1); PROTHROMBIN TIME - PATIENT 10.3 SEC (9.8-11.6)
[2017-03-09 19:48] LABS: ALBUMIN 3.3 GM/DL (3.4-5.0); ANION GAP 6 MEQ/L (5-15); BICARBONATE 29.3 MEQ/L (21.0-32.0); BLOOD UREA NITROGEN 15 MG/DL (7-18); GLUCOSE,RANDOM 116 MG/DL (74-106)
[2017-03-09 19:51] LABS: ALT (GPT) 17 U/L (12-78); AST (GOT) 10 U/L (15-37); CREATININE 0.96 MG/DL (0.60-1.30); GLOMERULAR FILTRATION RATE 75 ML/MIN (>89)
[2017-03-09 19:52] LABS: TOTAL BILIRUBIN ADULT 0.5 MG/DL (0.2-1.0)
[2017-03-09 19:53] LABS: TOTAL PROTEIN 6.8 GM/DL (6.4-8.2)
[2017-03-09 19:54] LABS: ALKALINE PHOSPHATASE 47 U/L (45-117)
[2017-03-09 19:56] LABS: TROPONIN I LESS THAN 0.02 NG/ML (0.02-0.05)
[2017-03-09 19:57] LABS: CREATINE KINASE 36 U/L (39-308)
[2017-03-09 19:59] LABS: B-TYPE NATRIURETIC PEPTIDE 52 PG/ML (0-100)
== END 2017-03-09 20:50 | disposition home or self-care (01) ==
LOC: PHED 18:09
DX: J44.1 Chronic obstructive pulmonary disease with (acute) exacerbation (principal); F17.210 Nicotine dependence, cigarettes, uncomplicated
CPT/HCPCS: 71045; 80053; 82550; 83880; 84484; 85025; 85610; 85730; 87804; 87804-59; 93005; 94640; 94664; 96374; 99285-25

== ENCOUNTER 2017-03-10 16:33 | Observation (INO) | payer MEDICARE, OTHER ==
[2017-03-10] VITALS (7 sets, daily range): BP systolic 106–132; BP diastolic 60–84; PULSE 86–98; RESP 18–28; TEMP 96.5–98.6; O2SAT 95–97
[~2017-03-10 16:33] MED LIST changes: -ALEN1TAB48 PO; -ASPI81TA81; -CEFD300C PO; -CIAL2.5T PO; +FLUT1INH INH; -IPRASOL INH; -LIBRAX PO; +PRED10 PO; +PRED20 PO; -SYMB80AE INH; +TAMS0.4C4 PO
[2017-03-10] MEDS ORDERED: methylPREDNISolone SOD SUCC 125 MG/2 ML VIAL IV PUSH ONE (17:00)
[2017-03-10] MEDS ORDERED: SODIUM CHLORIDE 0.9% FLUSH 10 ML FLUSH IVF PRN (17:00)
--- NOTE | 2017-03-10 17:00 | PD ---
HPI Chief Complaint: Respiratory Symptoms Time Seen by Provider: 16:45 Travel History International Travel<30 days: No Contact w/Intl Traveler<30days: No Traveled to known affect area: No History of Present Illness HPI 81 y/o male presents with continued difficulty breathing. He confirms he was just discharged yesterday with steroids. He states he's had to use his breathing treatments more frequently and last used one shortly prior to arrival without improvement. He denies any new complaints. He denies any other concurrent concerns. He feels worse when he moves around. He denies other modifying factors. Quality is wheezing. Severity is progressive. PFSH Past Medical History Hx Anticoagulant Therapy: No Autoimmune Disease: No Cancer: Yes (skin cancer ) Cardiovascular Problems: No COPD: Yes Diabetes: No Endocrine: No Gastrointestinal Disorders: No GERD: No Genitourinary: No Hiatal Hernia: No Immune Disorder: No Implanted Vascular Access Dvce: No Musculoskeletal: Yes (ostheoporosis) Neurologic: No Psychiatric: No Reproductive: No Respiratory: Yes (COPD) Sleep Apnea: No Ulcer: No Past Surgical History Abdominal Surgery: Yes (APPENDECTOMY) Cardiac Surgery: No Ear Surgery: No Endocrine Surgery: No Eye Surgery: No Genitourinary Surgery: No Gynecologic Surgery: No Neurologic Surgery: No Thoracic Surgery: Yes (RL LOBE REMOVED) Other Surgery: Yes (hip replacement july 2015) Social History Alcohol Use: Yes (socially) Tobacco Use: Yes (1ppd) Substance Use: No Allergies-Medications (Allergen,Severity, Reaction): Coded Allergies: nystatin (Verified Allergy, Severe, 03/10/17) triamcinolone (Verified Allergy, Severe, 03/10/17) Reported Meds & Prescriptions Reported Meds & Active Scripts Active Prednisone 20 Mg Tab 60 Mg PO DAILY 5 Days Reported Breo Ellipta Inh (Fluticasone/Vilanterol) 100-25 Mcg/Act Inh 1 Puff INH DAILY Use daily at the same time. Tamsulosin (Tamsulosin HCl) 0.4 Mg Cap 0.4 Mg PO HS Prednisone 10 Mg Tab 10 Mg PO DAILY Ventolin Hfa 18 GM Inh (Albuterol Sulfate) 90 Mcg/Act Aer 1 Puff INH Q4H PRN Review of Systems Except as stated in HPI: all other systems reviewed are Neg Physical Exam Narrative GENERAL: Well-nourished, well-developed patient. SKIN: Warm and dry. HEAD: Normocephalic and atraumatic. EYES: No injection or drainage. ENT: No nasal drainage noted. NECK: Supple, trachea midline. CARDIOVASCULAR: Regular rate and rhythm RESPIRATORY: Decreased aeration with expiratory wheezing bilaterally. No accessory muscle use. GASTROINTESTINAL: Abdomen soft, non-tender, nondistended. EXTREMITIES: No edema. NEUROLOGICAL: Awake and alert. Moves all extremities and sensory grossly within normal limits. Normal speech. Data Data Last Documented VS Vital Signs Date Time Temp Pulse Resp B/P (MAP) Pulse Ox O2 Delivery O2 Flow Rate FiO2 03/10/17 17:51 86 20 132/82 (99) 97 Nasal Cannula 2.00 03/10/17 16:37 98.6 Orders Orders Complete Blood Count With Diff (03/10/17 16:48) Comprehensive Metabolic Panel (03/10/17 16:48) Act Partial Throm Time (Ptt) (03/10/17 16:48) Prothrombin Time / Inr (Pt) (03/10/17 16:48) Magnesium (Mg) (03/10/17 16:48) Influenzae A/B Antigen (03/10/17 16:48) Iv Access Insert/Monitor (03/10/17 16:48) Electrocardiogram (03/10/17 16:48) Ecg Monitoring (03/10/17 16:48) Oximetry (03/10/17 16:48) Chest, Single Ap (03/10/17 16:48) Sodium Chloride 0.9% Flush (Ns Flush) (03/10/17 17:00) Methylprednisolone So Succ Inj (Solumedr (03/10/17 17:00) Albuterol-Ipratropium Neb (Duoneb Neb) (03/10/17 17:00) Admit Order (Ed Use Only) (03/10/17 18:02) Albuterol Hfa Inh (Proair Hfa Inh) (03/10/17 18:15) Fluticason-Vilanter 100-25 Inh (Breo Ell (03/11/17 09:00) Tamsulosin (Flomax) (03/10/17 21:00) Place In Observation (03/10/17 ) Vital Signs (Adult) Q4H (03/10/17 18:08) Activity Oob With Assistance (03/10/17 18:08) Diet Heart Healthy (03/10/17 Dinner) Sodium Chloride 0.9% Flush (Ns Flush) (03/10/17 18:15) Sodium Chloride 0.9% Flush (Ns Flush) (03/10/17 21:00) Acetaminophen (Tylenol) (03/10/17 18:15) Ondansetron Inj (Zofran Inj) (03/10/17 18:15) Basic Metabolic Panel (Bmp) (03/11/17 06:00) Complete Blood Count With Diff (03/11/17 06:00) Resp Oxygen Jose C Titrat 1-4 L (03/10/17 ) Pt Request For Service (03/10/17 18:08) Naloxone Inj (Narcan Inj) (03/10/17 18:15) Docusate Sodium-Senna (Sherry-Colace) (03/10/17 21:00) Magnesium Hydroxide Liq (Milk Of Magnesi (03/10/17 18:15) Sennosides (Senokot) (03/10/17 18:15) Bisacodyl Supp (Dulcolax Supp) (03/10/17 18:15) Scd Bilateral/Knee High RANDY.QSHIFT (03/10/17 18:08) Methylprednisolone So Succ Inj (Solumedr (03/10/17 22:00) Albuterol-Ipratropium Neb (Duoneb Neb) (03/10/17 20:00) Albuterol-Ipratropium Neb (Duoneb Neb) (03/10/17 18:15) Labs Laboratory Tests Test 03/10/17 17:00 White Blood Count 13.6 TH/MM3 Red Blood Count 5.23 MIL/MM3 Hemoglobin 15.8 GM/DL Hematocrit 48.7 % Mean Corpuscular Volume 93.0 FL Mean Corpuscular Hemoglobin 30.2 PG Mean Corpuscular Hemoglobin Concent 32.5 % Red Cell Distribution Width 13.5 % Platelet Count 214 TH/MM3 Mean Platelet Volume 7.7 FL Neutrophils (%) (Auto) 89.0 % Lymphocytes (%) (Auto) 4.5 % Monocytes (%) (Auto) 5.7 % Eosinophils (%) (Auto) 0.2 % Basophils (%) (Auto) 0.6 % Neutrophils # (Auto) 12.1 TH/MM3 Lymphocytes # (Auto) 0.6 TH/MM3 Monocytes # (Auto) 0.8 TH/MM3 Eosinophils # (Auto) 0.0 TH/MM3 Basophils # (Auto) 0.1 TH/MM3 CBC Comment DIFF FINAL Differential Comment Prothrombin Time 10.2 SEC Prothromb Time International Ratio 1.0 RATIO Activated Partial Thromboplast Time 23.8 SEC Blood Urea Nitrogen 21 MG/DL Creatinine 0.96 MG/DL Random Glucose 110 MG/DL Total Protein 6.4 GM/DL Albumin 3.1 GM/DL Calcium Level 8.9 MG/DL Magnesium Level 2.3 MG/DL Alkaline Phosphatase 48 U/L Aspartate Amino Transf (AST/SGOT) 12 U/L Alanine Aminotransferase (ALT/SGPT) 17 U/L Total Bilirubin 0.6 MG/DL Sodium Level 142 MEQ/L Potassium Level 4.4 MEQ/L Chloride Level 107 MEQ/L Carbon Dioxide Level 29.7 MEQ/L Anion Gap 5 MEQ/L Estimat Glomerular Filtration Rate 75 ML/MIN MDM Medical Decision Making Medical Screen Exam Complete: Yes Emergency Medical Condition: Yes Medical Record Reviewed: Yes (past history confirm, recent visit with similar yesterday) Interpretation(s) CBC & BMP Diagram 03/10/17 17:00 Total Protein 6.4, Albumin 3.1 L, Calcium Level 8.9, Magnesium Level 2.3, Alkaline Phosphatase 48, Aspartate Amino Transf (AST/SGOT) 12 L, Alanine Aminotransferase (ALT/SGPT) 17, Total Bilirubin 0.6 Last 24 hours Impressions Chest X-Ray 03/10/17 1648 Signed Impressions: Service Date/Time: Friday, March 10, 2017 17:40 - CONCLUSION: 1. Hyperinflation with severe biapical emphysematous changes/scarring. 2. No superimposed acute infiltrate. No change from prior. Johnson Kingsley MD Differential Diagnosis COPD exacerbation, pneumothorax, pneumonia, renal failure, anemia Narrative Course Will check chest x-ray, influenza and dose with Solu-Medrol and DuoNeb's and reevaluate ed workup with copd exacerbation, patient already on steriods and still worsening, will place in observation for further care, wears oxygen at home Physician Communication Physician Communication dr wu agrees to admit Diagnosis Primary Impression: COPD exacerbation Admitting Information Admitting Physician Requests: Observation Deandra Tyson MD Mar 10, 2017 17:00
[2017-03-10] MEDS: RESP: ALBUTEROL 2.5 MG/IPRATROPIUM 0.5 MG NEB (SCH) INH (17:01)
[2017-03-10 17:04] LABS: AUTOMATED NEUTROPHIL # 12.1 TH/MM3 (1.8-7.7); BASOPHIL # 0.1 TH/MM3 (0-0.2); BASOPHIL % 0.6 % (0.0-2.0); EOSINOPHIL % 0.2 % (0.0-4.0); HEMATOCRIT 48.7 % (39.0-51.0); HEMOGLOBIN 15.8 GM/DL (13.0-17.0); LYMPH % 4.5 % (9.0-44.0); LYMPHOCYTE # 0.6 TH/MM3 (1.0-4.8); MEAN CORPUSCULAR HEMOGLOBIN 30.2 PG (27.0-34.0); MEAN CORPUSCULAR HGB CONC 32.5 % (32.0-36.0); MEAN PLATELET VOLUME 7.7 FL (7.0-11.0); MONO % 5.7 % (0.0-8.0); MONOCYTE # 0.8 TH/MM3 (0-0.9); PLATELET COUNT 214 TH/MM3 (150-450); RED BLOOD COUNT 5.23 MIL/MM3 (4.50-5.90); RED CELL DISTRIBUTION WIDTH 13.5 % (11.6-17.2); WHITE BLOOD COUNT 13.6 TH/MM3 (4.0-11.0)
[2017-03-10 17:13] LABS: CHLORIDE 107 MEQ/L (98-107); SODIUM (NA) 142 MEQ/L (136-145)
[2017-03-10 17:16] LABS: CALCIUM 8.9 MG/DL (8.5-10.1); PROTHROMBIN TIME - PATIENT 10.2 SEC (9.8-11.6)
[2017-03-10 17:17] LABS: ALBUMIN 3.1 GM/DL (3.4-5.0); BICARBONATE 29.7 MEQ/L (21.0-32.0); BLOOD UREA NITROGEN 21 MG/DL (7-18); GLUCOSE,RANDOM 110 MG/DL (74-106); MAGNESIUM 2.3 MG/DL (1.5-2.5)
[2017-03-10 17:20] LABS: ALT (GPT) 17 U/L (12-78); AST (GOT) 12 U/L (15-37); CREATININE 0.96 MG/DL (0.60-1.30); GLOMERULAR FILTRATION RATE 75 ML/MIN (>89)
[2017-03-10 17:21] LABS: TOTAL BILIRUBIN ADULT 0.6 MG/DL (0.2-1.0); TOTAL PROTEIN 6.4 GM/DL (6.4-8.2)
[2017-03-10 17:23] LABS: ALKALINE PHOSPHATASE 48 U/L (45-117)
--- NOTE | 2017-03-10 17:58 | RADRPT ---
EXAM DATE/TIME: 03/10/2017 17:40 [facility] COMPARISON: CHEST SINGLE AP, March 09, 2017, 19:15. INDICATIONS : Short of breath. MEDICAL HISTORY : Chronic obstructive pulmonary disease. SURGICAL HISTORY : None. ENCOUNTER: Initial ACUITY: 1 day PAIN SCORE: 0/10 LOCATION: Bilateral chest FINDINGS: A single view of the chest demonstrates the lungs to be symmetrically hyperinflated with some parench ymal scarring in the bases. Emphysematous changes are most prominent in the apices. Surgical clips ar e seen to the right of the trachea. Heart size is normal. Osseous structures are intact with osseous changes in the right proximal humerus CONCLUSION: 1. Hyperinflation with severe biapical emphysematous changes/scarring. 2. No superimposed acute infiltrate. No change from prior. Johnson Kingsley MD on March 10, 2017 at 17:54 Board Certified Radiologist. This report was verified electronically.
[2017-03-10] MEDS ORDERED: SENNOSIDES 8.6 MG TAB PO PRN (18:15)
[2017-03-10] MEDS ORDERED: ACETAMINOPHEN 325 MG TAB PO PRN (18:15)
[2017-03-10] MEDS ORDERED: ALBUTEROL SULFATE 90 MCG/ACT HFA 8 GM INHALER INH PRN (18:15)
[2017-03-10] MEDS ORDERED: BISACODYL 10 MG SUPP RECTAL PRN (18:15)
[2017-03-10] MEDS ORDERED: MAGNESIUM HYDROXIDE SUSP 30 ML CUP PO PRN (18:15)
[2017-03-10] MEDS ORDERED: ONDANSETRON HCL 4 MG/2 ML VIAL IVP PRN (18:15)
[2017-03-10] MEDS ORDERED: NALOXONE HCL 0.4 MG/ML AMP IV PUSH PRN (18:15)
--- NOTE | 2017-03-10 18:37 | HHI.HP ---
[facility] Ty Weeks MD Admission Diagnosis COPD exacerbation Diagnoses: Chief Complaint: Shortness of breath Travel History International Travel<30 Days: No Contact w/Intl Traveler <30 Da: No Traveled to Known Affected Are: No History of Present Illness This is a pleasant 81-year-old male patient with known medical history COPD and long-standing tobacco use who presented to the ED with complaints of worsening shortness of breath. Patient states for the last four months he's presented to the ED with complaints of worsening dyspnea and has been requiring increasing O2 requirements at home as well as increased use in duo nebs at home with no relief. Patient has just recently finished a steroid taper last week. Denies any recent antibiotic use. Does admit to a chronic cough with production of white phlegm. Patient follows with Dr. Valle in the outpatient setting. Denies any recent pubic, chills, abdominal pain, nausea, vomiting, diarrhea or dysuria. Review of Systems Constitutional: DENIES: Fever, Chills Eyes: DENIES: Blurred vision Respiratory: COMPLAINS OF: Cough, Sputum production, Shortness of breath Cardiovascular: DENIES: Chest pain, Lower Extremity Edema Gastrointestinal: DENIES: Abdominal pain, Bloody stools, Constipation, Diarrhea , Nausea, Vomiting Musculoskeletal: DENIES: Joint pain Hematologic/lymphatic: DENIES: Bruising Immunologic/allergic: DENIES: Eczema Neurologic: DENIES: Abnormal gait Psychiatric: DENIES: Anxiety Except as stated in HPI: all other systems reviewed are Neg Past Family Social History Past Medical History COPD Skin cancer Osteoporosis Past Surgical History Appendectomy Right lower lobectomy Left hip replacement Reported Medications Active Reported Breo Ellipta Inh (Fluticasone/Vilanterol) 100-25 Mcg/Act Inh 1 Puff INH DAILY Use daily at the same time. Tamsulosin (Tamsulosin HCl) 0.4 Mg Cap 0.4 Mg PO HS Ventolin Hfa 18 GM Inh (Albuterol Sulfate) 90 Mcg/Act Aer 1 Puff INH Q4H PRN Allergies: Coded Allergies: nystatin (Verified Allergy, Severe, 03/10/17) triamcinolone (Verified Allergy, Severe, 03/10/17) Active Ordered Medications Current Medications Medications (Trade) Dose Ordered Sig/Lizzie Route Start Time Stop Time Status Last Admin (NS Flush) 2 ml UNSCH PRN IVF 03/10/17 17:00 (Proair Hfa Inh) 1 puff Q4H PRN INH 03/10/17 18:15 UNV (Breo Ellipta 100-25 Inh) 1 puff DAILY INH 03/11/17 09:00 UNV (Flomax) 0.4 mg HS PO 03/10/17 21:00 UNV (NS Flush) 2 ml UNSCH PRN IV FLUSH 03/10/17 18:15 UNV (NS Flush) 2 ml BID IV FLUSH 03/10/17 21:00 UNV (Tylenol) 650 mg Q4H PRN PO 03/10/17 18:15 UNV (Zofran Inj) 4 mg Q6H PRN IVP 03/10/17 18:15 UNV (Narcan Inj) 0.4 mg UNSCH PRN IV PUSH 03/10/17 18:15 UNV (Sherry-Colace) 1 tab BID PO 03/10/17 21:00 UNV (Milk Of Magnesia Liq) 30 ml Q12H PRN PO 03/10/17 18:15 UNV (Senokot) 17.2 mg Q12H PRN PO 03/10/17 18:15 UNV (Dulcolax Supp) 10 mg DAILY PRN RECTAL 03/10/17 18:15 UNV (SoluMEDROL INJ) 60 mg Q8HR IV PUSH 03/10/17 22:00 UNV (Duoneb Neb) 1 ampule Q6HR WHILE AWAKE NEB NEB 03/10/17 20:00 UNV (Duoneb Neb) 1 ampule Q2HR NEB PRN NEB 03/10/17 18:15 UNV Family History Paternal medical history significant for prostate cancer Maternal medical history significant for breast cancer Social History Patient admits to smoking one pack per day cigarettes for the last seventy-one years. Admits to occasional alcohol use. Denies any illicit drug use. Physical Exam Vital Signs Vital Signs Date Time Temp Pulse Resp B/P (MAP) Pulse Ox O2 Delivery O2 Flow Rate FiO2 03/10/17 17:51 86 20 132/82 (99) 97 Nasal Cannula 2.00 03/10/17 17:00 95 Nasal Cannula 2.00 03/10/17 16:59 96 03/10/17 16:37 98.6 96 28 120/60 (80) 95 Physical Exam GENERAL: Well-nourished, well-developed patient in NAD. On supplemental O2 SKIN: Warm and dry. No rash. HEAD: Normocephalic. Atraumatic. EYES: Pupils equal and round. No scleral icterus. No injection or drainage. ENT: No nasal bleeding or discharge. Mucous membranes pink and moist. NECK: Supple. Trachea midline. CARDIOVASCULAR: Regular rate and rhythm. S1, S2 noted. No murmur appreciated. RESPIRATORY: Mild accessory muscle use. Diffuse expiratory wheezing throughout all lobes. Breath sounds equal bilaterally. GASTROINTESTINAL: Abdomen soft, non-tender, nondistended. Normoactive bowel sounds x4. MUSCULOSKELETAL: No obvious deformities. Extremities without clubbing, cyanosis , or edema. NEUROLOGICAL: Awake and alert. No obvious cranial nerve deficits. Motor grossly within normal limits. 5/5 muscle strength in bilateral upper and lower extremities. Normal speech. PSYCHIATRIC: Appropriate mood and affect; insight and judgment normal. Laboratory Laboratory Tests Test 03/10/17 17:00 White Blood Count 13.6 Red Blood Count 5.23 Hemoglobin 15.8 Hematocrit 48.7 Mean Corpuscular Volume 93.0 Mean Corpuscular Hemoglobin 30.2 Mean Corpuscular Hemoglobin Concent 32.5 Red Cell Distribution Width 13.5 Platelet Count 214 Mean Platelet Volume 7.7 Neutrophils (%) (Auto) 89.0 Lymphocytes (%) (Auto) 4.5 Monocytes (%) (Auto) 5.7 Eosinophils (%) (Auto) 0.2 Basophils (%) (Auto) 0.6 Neutrophils # (Auto) 12.1 Lymphocytes # (Auto) 0.6 Monocytes # (Auto) 0.8 Eosinophils # (Auto) 0.0 Basophils # (Auto) 0.1 CBC Comment DIFF FINAL Differential Comment Prothrombin Time 10.2 Prothromb Time International Ratio 1.0 Activated Partial Thromboplast Time 23.8 Blood Urea Nitrogen 21 Creatinine 0.96 Random Glucose 110 Total Protein 6.4 Albumin 3.1 Calcium Level 8.9 Magnesium Level 2.3 Alkaline Phosphatase 48 Aspartate Amino Transf (AST/SGOT) 12 Alanine Aminotransferase (ALT/SGPT) 17 Total Bilirubin 0.6 Sodium Level 142 Potassium Level 4.4 Chloride Level 107 Carbon Dioxide Level 29.7 Anion Gap 5 Estimat Glomerular Filtration Rate 75 Date/Time Source Procedure Growth Status 03/10/17 17:00 Nasal Aspirate Influenza Types A,B Antigen (SHANELL) - Final NEGATIVE FOR FLU A AND B ANTIGEN.... Complete Result Diagram: 03/10/17 1700 03/10/17 1700 Imaging Last Impressions Chest X-Ray 03/10/17 1648 Signed Impressions: Service Date/Time: Friday, March 10, 2017 17:40 - CONCLUSION: 1. Hyperinflation with severe biapical emphysematous changes/scarring. 2. No superimposed acute infiltrate. No change from prior. Johnson Kingsley MD Septic Shock Reassessment Septic shock perfusion: reassessment completed Caprini VTE Risk Assessment Caprini VTE Risk Assessment: Mod/High Risk (score >= 2) Caprini Risk Assessment Model Point Value = 1 Point Value = 2 Point Value = 3 Point Value = 5 Age 41-60 Minor surgery BMI > 25 kg/m2 Swollen legs Varicose veins or History of unexplained or recurrent spontaneous Oral contraceptives or hormone replacement Sepsis (< 1 month) Serious lung disease, including pneumonia (< 1 month) Abnormal pulmonary function Acute myocardial infarction Congestive heart failure (< 1 month) History of inflammatory bowel disease Medical patient at bed rest Age 61-74 Arthroscopic surgery Major open surgery (> 45 min) Laparoscopic surgery (> 45 min) Malignancy Confined to bed (> 72 hours) Immobilizing plaster cast Central venous access Age >= 75 History of VTE Family history of VTE Factor V Leiden Prothrombin [id number] Lupus anticoagulant Anticardiolipin antibodies Elevated serum homocysteine Heparin-induced thrombocytopenia Other congenital or acquired thrombophilia Stroke (< 1 month) Elective arthroplasty Hip, pelvis, or leg fracture Acute spinal cord injury (< 1 month) Prophylaxis Regimen Total Risk Factor Score Risk Level Prophylaxis Regimen 0-1 Low Early ambulation 2 Moderate Order ONE of the following: *Sequential Compression Device (SCD) *Heparin 5000 units SQ BID 3-4 Higher Order ONE of the following medications: *Heparin 5000 units SQ TID *Enoxaparin/Lovenox 40 mg SQ daily (WT < 150 kg, CrCl > 30 mL/min) *Enoxaparin/Lovenox 30 mg SQ daily (WT < 150 kg, CrCl > 10-29 mL/min) *Enoxaparin/Lovenox 30 mg SQ BID (WT < 150 kg, CrCl > 30 mL/min) AND/OR *Sequential Compression Device (SCD) 5 or more Highest Order ONE of the following medications: *Heparin 5000 units SQ TID (Preferred with Epidurals) *Enoxaparin/Lovenox 40 mg SQ daily (WT < 150 kg, CrCl > 30 mL/min) *Enoxaparin/Lovenox 30 mg SQ daily (WT < 150 kg, CrCl > 10-29 mL/min) *Enoxaparin/Lovenox 30 mg SQ BID (WT < 150 kg, CrCl > 30 mL/min) AND *Sequential Compression Device (SCD) Assessment and Plan Problem List: (1) COPD exacerbation ICD Code: J44.1 - Chronic obstructive pulmonary disease with (acute) exacerbation Status: Acute Plan: Patient has been admitted for observation for shortness of breath and COPD exacerbation. Placed on supplemental O2 3 L nasal cannula, titrate as needed to keep sats greater than 90%. Placed on duo nebs scheduled and as needed for wheezing. Chest x-ray reviewed showing hyperinflation with severe biapical emphysematous changes and scarring. No superimposed acute infiltrate. Patient has been placed on scheduled IV steroids. As well as IV antibiotics. Will continue home inhalers. Influenza negative. Supportive care. Mild leukocytosis noted, likely due to recent steroid taper at home. Continue to monitor labs. CBC and BMP reviewed, essentially unremarkable. DVT prophylaxis: SCDs. Lovenox. Inez Valdes Mar 10, 2017 18:37
[2017-03-10] MEDS ORDERED: RESP: ALBUTEROL 2.5 MG/IPRATROPIUM 0.5 MG NEB (PRN) NEB (19:00)
[2017-03-10] MEDS: AZITHROMYCIN INJ 500 MG in SODIUM CHLOR 0.9% 250 ML INJ 250 ML IV SCH (20:38)
[2017-03-10] MEDS: SODIUM CHLORIDE 0.9% FLUSH 10 ML FLUSH IV FLUSH SCH (20:40)
[2017-03-10] MEDS: ENOXAPARIN SODIUM 40 MG/0.4 ML SYRINGE SQ SCH (20:41)
[2017-03-10] MEDS: TAMSULOSIN HCL 0.4 MG CAP PO SCH (20:41)
[2017-03-10] MEDS: DOCUSATE SODIUM 50 MG/SENNA 8.6 MG TAB PO SCH (20:41)
[2017-03-10] MEDS: RESP: ALBUTEROL 2.5 MG/IPRATROPIUM 0.5 MG NEB (SCH) NEB (21:17)
--- NOTE | 2017-03-10 21:19 | EKG ---
Date Performed: 03/10/2017 Time Performed: 16:53:52 PTAGE: 81 years EKG: Sinus rhythm NORMAL ECG PREVIOUS TRACING : 03/09/2017 19.36 Since previous tracing, no significant change noted DOCTOR: Perla Laboy Interpretating Date/Time 03/10/2017 21:18:50
[2017-03-10] MEDS: methylPREDNISolone SOD SUCC 125 MG/2 ML VIAL IV PUSH SCH (21:40)
[2017-03-10] MEDS ORDERED: methylPREDNISolone SOD SUCC 125 MG/2 ML VIAL IV PUSH SCH (22:00)
[2017-03-10] MEDS: SODIUM CHLORIDE 0.9% FLUSH 10 ML FLUSH IV FLUSH PRN (23:33)
[2017-03-11] VITALS (7 sets, daily range): BP systolic 97–140; BP diastolic 61–83; PULSE 78–98; RESP 20; TEMP 96.3–97.3; O2SAT 95–97
[2017-03-11] MEDS: methylPREDNISolone SOD SUCC 125 MG/2 ML VIAL IV PUSH SCH ×3 (06:28→21:07)
[2017-03-11] MEDS: SODIUM CHLORIDE 0.9% FLUSH 10 ML FLUSH IV FLUSH PRN (06:29)
[2017-03-11 06:49] LABS: AUTOMATED NEUTROPHIL # 10.2 TH/MM3 (1.8-7.7); BASOPHIL # 0.5 TH/MM3 (0-0.2); BASOPHIL % 4.7 % (0.0-2.0); EOSINOPHIL % 0.1 % (0.0-4.0); HEMATOCRIT 48.5 % (39.0-51.0); HEMOGLOBIN 15.7 GM/DL (13.0-17.0); LYMPH % 1.8 % (9.0-44.0); LYMPHOCYTE # 0.2 TH/MM3 (1.0-4.8); MEAN CORPUSCULAR HEMOGLOBIN 29.7 PG (27.0-34.0); MEAN CORPUSCULAR HGB CONC 32.3 % (32.0-36.0); MEAN PLATELET VOLUME 8.2 FL (7.0-11.0); MONO % 2.1 % (0.0-8.0); MONOCYTE # 0.2 TH/MM3 (0-0.9); NEUT % 91.3 % (16.0-70.0); PLATELET COUNT 199 TH/MM3 (150-450); RED BLOOD COUNT 5.27 MIL/MM3 (4.50-5.90); RED CELL DISTRIBUTION WIDTH 13.1 % (11.6-17.2); WHITE BLOOD COUNT 11.1 TH/MM3 (4.0-11.0)
[2017-03-11 06:55] LABS: BICARBONATE 29.7 MEQ/L (21.0-32.0)
[2017-03-11 06:58] LABS: CREATININE 0.89 MG/DL (0.60-1.30)
[2017-03-11] MEDS: RESP: ALBUTEROL 2.5 MG/IPRATROPIUM 0.5 MG NEB (SCH) NEB ×3 (08:13→21:23)
[2017-03-11] MEDS: DOCUSATE SODIUM 50 MG/SENNA 8.6 MG TAB PO SCH ×2 (08:35→21:07)
[2017-03-11] MEDS: SODIUM CHLORIDE 0.9% FLUSH 10 ML FLUSH IV FLUSH SCH ×2 (08:35→21:08)
[2017-03-11] MEDS: FLUTICASONE 100 MCG/VILANTEROL 25 MCG INHALER INH SCH (09:17)
--- NOTE | 2017-03-11 11:09 | HHI.DCPOC ---
Discharge Care Plan Diagnosis: (1) COPD exacerbation Goals to Promote Your Health * To prevent worsening of your condition and complications * To maintain your health at the optimal level Directions to Meet Your Goals Take your medications as prescribed Follow your dietary instruction Follow activity as directed Keep your appointments as scheduled Take your immunizations and boosters as scheduled If your symptoms worsen call your PCP, if no PCP go to Urgent Care Center or Emergency Room Smoking is Dangerous to Your Health. Avoid second hand smoke Call the 24-hour hour crisis hotline for domestic abuse at Inez Valdes Mar 11, 2017 11:09
--- NOTE | 2017-03-11 11:09 | HHI.DS ---
Discharge Summary Admission Date Mar 10, 2017 at 18:03 Discharge Date: Mar 13, 2017 Admitting Diagnosis COPD exacerbation (1) COPD exacerbation ICD Code: J44.1 - Chronic obstructive pulmonary disease with (acute) exacerbation Status: Acute Procedures none Brief History - From Admission This is a pleasant 81-year-old male patient with known medical history COPD and long-standing tobacco use who presented to the ED with complaints of worsening shortness of breath. Patient states for the last four months he's presented to the ED with complaints of worsening dyspnea and has been requiring increasing O2 requirements at home as well as increased use in duo nebs at home with no relief. Patient has just recently finished a steroid taper last week. Denies any recent antibiotic use. Does admit to a chronic cough with production of white phlegm. Patient follows with Dr. Valle in the outpatient setting. Denies any recent pubic, chills, abdominal pain, nausea, vomiting, diarrhea or dysuria. CBC/BMP: 03/11/17 0625 03/11/17 0625 Significant Findings Laboratory Tests Test 03/10/17 17:00 03/11/17 06:25 White Blood Count 13.6 TH/MM3 (4.0-11.0) 11.1 TH/MM3 (4.0-11.0) Neutrophils (%) (Auto) 89.0 % (16.0-70.0) 91.3 % (16.0-70.0) Lymphocytes (%) (Auto) 4.5 % (9.0-44.0) 1.8 % (9.0-44.0) Neutrophils # (Auto) 12.1 TH/MM3 (1.8-7.7) 10.2 TH/MM3 (1.8-7.7) Lymphocytes # (Auto) 0.6 TH/MM3 (1.0-4.8) 0.2 TH/MM3 (1.0-4.8) Activated Partial Thromboplast Time 23.8 SEC (24.3-30.1) Blood Urea Nitrogen 21 MG/DL (7-18) 24 MG/DL (7-18) Random Glucose 110 MG/DL (74-106) 138 MG/DL (74-106) Albumin 3.1 GM/DL (3.4-5.0) Aspartate Amino Transf (AST/SGOT) 12 U/L (15-37) Estimat Glomerular Filtration Rate 75 ML/MIN (>89) 82 ML/MIN (>89) Basophils (%) (Auto) 4.7 % (0.0-2.0) Basophils # (Auto) 0.5 TH/MM3 (0-0.2) Imaging Last Impressions Chest X-Ray 03/10/17 1648 Signed Impressions: Service Date/Time: Friday, March 10, 2017 17:40 - CONCLUSION: 1. Hyperinflation with severe biapical emphysematous changes/scarring. 2. No superimposed acute infiltrate. No change from prior. Johnson Kingsley MD PE at Discharge exam performed by mt, Dr Hamilton on 03/13: Mild wheezing heard in the bases, unlabored breathing, sleeping in bed No acute distress, nasal cannula and nose, no cyanosis Hospital Course Patient was admitted, started IV steroids for COPD exacerbation. He eventually was able to recover back down to his baseline work of breathing and was slowly titrated down on IV steroids and was safe for transition to by mouth steroids upon discharge. He remained at his O2 home oxygen level of 2.5 to 3 L. Patient has met maximal benefit from hospitalization and is clinically stable for discharge. Pt Condition on Discharge: Good Discharge Disposition: Discharge Home Discharge Time: <= 30 minutes Discharge Instructions DIET: Follow Instructions for: Heart Healthy Diet Activities you can perform: Regular-No Restrictions Follow up Referrals: PCP Follow-up - 1 Week Pulmonology - 1 Week New Medications: Prednisone (Prednisone) 20 Mg Tab 20 MG PO DIRECTED for COPD, #24 TAB 0 Refills Take 60 MG daily x 4 days, then 40 MG x 4 days, then 20 MG daily x 4 days. Prednisone (Prednisone) 10 Mg Tab 10 MG PO DIRECTED for copd, #12 TAB 0 Refills start after completing 20 mg regimen of prednisone. 1 tab po daily. Continued Medications: Albuterol 18 GM Inh (Ventolin Hfa 18 GM Inh) 90 Mcg/Act Aer 1 PUFF INH Q4H PRN for SHORTNESS OF BREATH, #1 INHALER 0 Refills Fluticasone-Vilanterol Inh (Breo Ellipta Inh) 100-25 Mcg/Act Inh 1 PUFF INH DAILY, #1 INHALER 0 Refills Use daily at the same time. Tamsulosin (Tamsulosin) 0.4 Mg Cap 0.4 MG PO HS for Manage Prostate Problems, #30 CAP 0 Refills Umeclidinium [place] Inh (Incruse Ellipta Inh) 0.0625 Mg/Act Inh 62.5 MCG INH DAILY for Treat COPD, #1 INHALER 0 Refills Discontinued Medications: Prednisone (Prednisone) 10 Mg Tab 10 MG PO DAILY, TAB 0 Refills Prednisone (Prednisone) 20 Mg Tab 60 MG PO DAILY for 5 Days, #15 TAB 0 Refills Inez Valdes Mar 11, 2017 11:09 Compa Hamilton MD Mar 12, 2017 16:59
--- NOTE | 2017-03-11 12:47 | HHI.PR ---
Subjective Remarks Nursing denies any deterioration since last night. Patient says he wears 2-2.5 L of oxygen at home. Says he feels improved since admission, says he is still getting very winded just going to the restroom but at rest he is much better. Objective Vital Signs Date Time Temp Pulse Resp B/P (MAP) Pulse Ox O2 Delivery O2 Flow Rate FiO2 03/11/17 08:45 97 Nasal Cannula 2.00 03/11/17 08:06 97 Nasal Cannula 2.00 03/11/17 08:00 97.0 89 20 140/83 (102) 97 03/11/17 04:00 96.3 95 20 97/61 (73) 95 03/11/17 00:00 96 Nasal Cannula 2.00 03/10/17 22:00 96.5 98 20 126/84 (98) 96 03/10/17 21:43 95 18 106/70 (82) 97 Nasal Cannula 2.00 03/10/17 21:17 96 Nasal Cannula 2.00 03/10/17 20:57 95 Nasal Cannula 2.00 03/10/17 17:51 86 20 132/82 (99) 97 Nasal Cannula 2.00 03/10/17 17:00 95 Nasal Cannula 2.00 03/10/17 16:59 96 03/10/17 16:37 98.6 96 28 120/60 (80) 95 I/O 03/10/17 03/10/17 03/10/17 03/11/17 03/11/17 03/11/17 07:00 15:00 23:00 07:00 15:00 23:00 Intake Total 250 ml 200 ml Output Total 100 ml Balance 150 ml 200 ml Intake Oral 200 ml IV Total 250 ml Output Urine Total 100 ml # Voids 2 # Bowel Movements 0 Result Diagram: 03/11/17 0625 03/11/17 0625 Objective Remarks No wheezing, slightly diminished breath sounds in the bases. No cyanosis, nasal cannula and nose. Does have some conversive dyspnea A/P Assessment and Plan Chronic obstructive pulmonary disease with (acute) exacerbation -Clinically improved but still needs another day of IV steroids since he is not at his baseline, easily gets very winded just going to the restroom. duo nebs scheduled and as needed for wheezing. Chest x-ray reviewed showing hyperinflation with severe biapical emphysematous changes and scarring. No superimposed acute infiltrate. will continue home inhalers. -Influenza negative. DVT prophylaxis: SCDs. Lovenox. Compa Hamilton MD Mar 11, 2017 12:47
[2017-03-11] MEDS: TAMSULOSIN HCL 0.4 MG CAP PO SCH (21:07)
[2017-03-11] MEDS: AZITHROMYCIN INJ 500 MG in SODIUM CHLOR 0.9% 250 ML INJ 250 ML IV SCH (21:07)
[2017-03-11] MEDS: ENOXAPARIN SODIUM 40 MG/0.4 ML SYRINGE SQ SCH (21:07)
[2017-03-12] VITALS (7 sets, daily range): BP systolic 118–139; BP diastolic 69–77; PULSE 83–94; RESP 20; TEMP 96.3–98.6; O2SAT 95–100
[2017-03-12] MEDS: methylPREDNISolone SOD SUCC 125 MG/2 ML VIAL IV PUSH SCH ×3 (06:04→21:36)
[2017-03-12] MEDS: RESP: ALBUTEROL 2.5 MG/IPRATROPIUM 0.5 MG NEB (SCH) NEB ×3 (07:51→20:45)
[2017-03-12] MEDS: FLUTICASONE 100 MCG/VILANTEROL 25 MCG INHALER INH SCH (08:06)
[2017-03-12] MEDS: SODIUM CHLORIDE 0.9% FLUSH 10 ML FLUSH IV FLUSH SCH ×2 (08:06→21:36)
[2017-03-12] MEDS: DOCUSATE SODIUM 50 MG/SENNA 8.6 MG TAB PO SCH ×2 (08:06→21:00)
[2017-03-12] MEDS ORDERED: UMEC1INH INH (08:12)
--- NOTE | 2017-03-12 10:43 | HHI.PR ---
Subjective Remarks Patient thinks he had a panic attack overnight that self resolved. Did not have any true hypoxia. Says he feels even better today. Nursing denies any other true medical deterioration overnight. Objective Vital Signs Date Time Temp Pulse Resp B/P (MAP) Pulse Ox O2 Delivery O2 Flow Rate FiO2 03/12/17 08:13 98 Nasal Cannula 3.00 03/12/17 08:00 97.1 87 20 139/77 (97) 100 03/12/17 07:54 99 Nasal Cannula 3.00 03/12/17 00:00 96.3 94 20 119/69 (86) 96 03/11/17 21:25 97 Nasal Cannula 2.00 03/11/17 20:00 97.2 78 20 118/74 (89) 97 03/11/17 20:00 Nasal Cannula 2.00 03/11/17 16:00 97.3 86 20 125/73 (90) 95 03/11/17 12:00 96.8 98 20 117/70 (86) 95 I/O 03/11/17 03/11/17 03/11/17 03/12/17 03/12/17 03/12/17 07:00 15:00 23:00 07:00 15:00 23:00 Intake Total 200 ml 725 ml 250 ml 240 ml 240 ml Output Total 200 ml Balance 200 ml 725 ml 250 ml 40 ml 240 ml Intake Oral 200 ml 725 ml 240 ml 240 ml IV Total 250 ml Output Urine Total 200 ml # Voids 2 4 2 # Bowel Movements 0 1 0 Result Diagram: 03/11/1762403/11/17 0625 Objective Remarks No wheezing, slightly diminished breath sounds in the bases. No cyanosis, nasal cannula and nose. No conversive dyspnea A/P Assessment and Plan Chronic obstructive pulmonary disease with (acute) exacerbation -Showing sustained improvement, we will transition down to 60 mg of IV Solu- Medrol today. We'll need a very slow taper DVT prophylaxis: SCDs. Lovenox. Compa Hamilton MD Mar 12, 2017 10:43
[2017-03-12] MEDS ORDERED: GLUCAGON 1 MG/ML VIAL OTHER PRN (16:15)
[2017-03-12] MEDS ORDERED: DEXTROSE 50% IN WATER 50 ML VIAL(D50) IV PUSH PRN (16:15)
[2017-03-12] MEDS: INSULIN NovoLIN REGULAR SUPPLEMENTAL SCALE SQ SCH ×2 (17:00→21:00)
[2017-03-12] MEDS: TAMSULOSIN HCL 0.4 MG CAP PO SCH (21:36)
[2017-03-12] MEDS: ENOXAPARIN SODIUM 40 MG/0.4 ML SYRINGE SQ SCH (21:36)
[2017-03-12] MEDS: AZITHROMYCIN INJ 500 MG in SODIUM CHLOR 0.9% 250 ML INJ 250 ML IV SCH (21:37)
[2017-03-13] VITALS: BP 128/69; PULSE 91; RESP 20; TEMP 97.1; O2SAT 97
[2017-03-13] MEDS: RESP: ALBUTEROL 2.5 MG/IPRATROPIUM 0.5 MG NEB (SCH) NEB (07:29)
[2017-03-13 07:30] VITALS: O2SAT 98
[2017-03-13] MEDS: INSULIN NovoLIN REGULAR SUPPLEMENTAL SCALE SQ SCH (09:05)
[2017-03-13] MEDS: SODIUM CHLORIDE 0.9% FLUSH 10 ML FLUSH IV FLUSH SCH (09:06)
[2017-03-13] MEDS: FLUTICASONE 100 MCG/VILANTEROL 25 MCG INHALER INH SCH (09:07)
[2017-03-13] MEDS: methylPREDNISolone SOD SUCC 125 MG/2 ML VIAL IV PUSH SCH (09:07)
[2017-03-13] MEDS: DOCUSATE SODIUM 50 MG/SENNA 8.6 MG TAB PO SCH (09:08)
[2017-03-13 09:43] VITALS: BP 144/83; PULSE 93; RESP 18; TEMP 96.4; O2SAT 97
[2017-03-13] MEDS ORDERED: PRED20 PO (11:49)
[2017-03-13] MEDS ORDERED: PRED10 PO (11:51)
== END 2017-03-13 12:25 | disposition home or self-care (01) ==
LOC: PHED 16:33 → PHEDA 18:03 → PH3A 21:56
PROVIDERS: ADMIT Hospitalist; ATTEND Hospitalist
DX: J44.1 Chronic obstructive pulmonary disease with (acute) exacerbation (principal); D72.829 Elevated white blood cell count, unspecified; Z72.0 Tobacco use; M81.0 Age-related osteoporosis without current pathological fracture; Z99.81 Dependence on supplemental oxygen; Z85.828 Personal history of other malignant neoplasm of skin; Z96.642 Presence of left artificial hip joint
CPT/HCPCS: 71045; 80048; 80053; 82948; 83735; 85025; 85610; 85730; 87804; 93005; 94640; 94664; 96365; 96366; 96372; 96375; 96376; 97110; 97116; 97162; 99285; G0378; G8987; G8988; J0456; J1650; J2930; J7050